=== PATIENT | female | born 2000 | race Caucasian/White ===

== ENCOUNTER → 2018-01-03 | Outpatient (CLI) | payer OTHER ==
--- NOTE | 2018-01-03 15:57 | DIAGNOSTIC IMAGING REPORT ---
CHEST 2 VIEWS ROUTINE CLINICAL HISTORY: Coughing up blood. COMPARISON STUDY: No previous studies for comparison. FINDINGS: The lung volumes are within normal limits. Lungs are clear. No pneumothorax or pleural effusion is noted. Cardiac size is normal. Mediastinal contours are normal. There is no evidence for pulmonary edema. IMPRESSION: No acute cardiopulmonary findings. Electronically signed by: Tip Mccormack M.D. 01/03/2018 3:55 PM Dictated Date/Time: 01/03/2018 3:55 PM
--- NOTE | 2018-01-03 15:58 | DIAGNOSTIC IMAGING REPORT ---
SINUSES MIN 3 VIEWS ROUTINE CLINICAL HISTORY: Coughing up blood COMPARISON STUDY: No previous studies for comparison. FINDINGS: There is no conventional radiographic evidence of acute sinusitis. There is no significant mucoperiosteal thickening. No bony destructive lesions are visualized. IMPRESSION: No conventional radiographic evidence of sinusitis Electronically signed by: Ross Mcgraw M.D. 01/03/2018 3:57 PM Dictated Date/Time: 01/03/2018 3:57 PM
== END | disposition home or self-care (01) ==
LOC: C.LAB1850 15:24
PROVIDERS: ATTEND Internal Medicine Pulmonary Disease
DX: R04.2 Hemoptysis (principal)

== ENCOUNTER → 2018-02-06 | Outpatient (CLI) | payer OTHER ==
[~2018-02-06] MED LIST: OPTIRAY 320 IV PRN
--- NOTE | 2018-02-06 17:49 | DIAGNOSTIC IMAGING REPORT ---
Head CT WITH AND WITHOUT INTRAVENOUS CONTRAST HISTORY: ATYPICAL MIGRAINE TECHNIQUE: Multiaxial CT images of the head were performed both before and after the intravenous administration of contrast. COMPARISON STUDY: None. FINDINGS: There is no mass, hematoma, midline shift, acute infarct. Ventricles and sulci are within normal limits. The calvarium and skull base are intact. Paranasal sinuses and mastoid air cells are clear. No abnormal enhancement. IMPRESSION: Normal head CT. Electronically signed by: Jose Boothe M.D. 02/06/2018 5:47 PM Dictated Date/Time: 02/06/2018 5:39 PM
== END | disposition home or self-care (01) ==
LOC: C.CTS 17:23
PROVIDERS: ATTEND Physician Assistant Medical
DX: G43.009 Migraine without aura, not intractable, without status migrainosus (principal)